=== PATIENT | female | born 1955 | race Caucasian/White ===

== ENCOUNTER 2023-02-21 06:33 | Emergency (ER) | payer SELFPAY ==
[2023-02-21 06:59] VITALS: RESP 16; TEMP 98.1; BMI 35.2
[2023-02-21] MEDS ORDERED: ACETAMINOPHEN 1000 MG/100 ML BAG IVPB ONE (07:57)
[2023-02-21 09:01] LABS: BASO % 0.4 % (0-2.0); EOS % 0.1 % (0-4.5); HEMATOCRIT 42.8 % (32.4-45.2); HEMOGLOBIN 14.8 GM/dL (10.7-15.3); LYMPH % 13.4 % (8-40); MCH 30.3 pg (25.7-33.7); MCHC 34.6 g/dl (32.0-36.0); MEAN CELL VOLUME 87.4 fl (80-96); MEAN PLT VOLUME 8.9 fl (7.5-11.1); MONO % 4.1 % (3.8-10.2); PLATELET COUNT 206 10^3/uL (134-434); RDW 13.9 % (11.6-15.6); WHITE BLOOD COUNT 10.8 K/mm3 (4.0-10.0)
[2023-02-21 09:06] LABS: INR 1.05 (0.83-1.09); PROTHROMBIN TIME (PATIENT) 12.2 SEC (9.7-13.0)
[2023-02-21 09:09] LABS: ACTIVATED PTT 36.4 SECONDS (25.2-36.5)
[2023-02-21 09:24] LABS: POTASSIUM 4.1 mmol/L (3.5-5.1)
[2023-02-21 09:25] LABS: CALCIUM 9.2 mg/dL (8.5-10.1)
[2023-02-21 09:26] LABS: ALBUMIN 3.7 g/dl (3.4-5.0); BLOOD UREA NITROGEN 12.6 mg/dL (7-18)
[2023-02-21 09:29] LABS: CREATININE 0.6 mg/dL (0.55-1.3)
[2023-02-21 09:31] LABS: BILIRUBIN,TOTAL 0.7 mg/dL (0.2-1); TOT PROT 7.8 g/dl (6.4-8.2)
[2023-02-21] MEDS ORDERED: CLINDAMYCIN 600MG PREMIX IVPB 600 MG/50 ML BAG IVPB ONE ×2 (11:57→12:33)
[2023-02-21 14:32] VITALS: BP 146/83; PULSE 113
== END 2023-02-21 14:20 | disposition short-term general hospital (02) ==
LOC: JER 06:33
PROC: 3E03329 Introduction of Other Anti-infective into Peripheral Vein, Percutaneous Approach (ICD-10-PCS; principal; 2023-02-21)
PROC: 3E033NZ Introduction of Analgesics, Hypnotics, Sedatives into Peripheral Vein, Percutaneous Approach (ICD-10-PCS; 2023-02-21)
DX: R51.9 Headache, unspecified (principal); R22.0 Localized swelling, mass and lump, head; L53.8 Other specified erythematous conditions; R59.0 Localized enlarged lymph nodes; K04.7 Periapical abscess without sinus; R13.10 Dysphagia, unspecified
CPT/HCPCS: 36415; 70487-TC; 70491-TC; 80053; 85025; 85610; 85730; 86850; 86900; 86901; 87040; 93005; 93010; 99285-25; Q9967